=== PATIENT | female | born 1950 | race Caucasian/White ===

== ENCOUNTER 2024-11-27 01:55 | Day surgery (SDC) | payer MEDICARE, OTHER, SELFPAY ==
[2024-11-14 15:51] VITALS: BMI 21.7
--- NOTE | 2024-11-14 16:11 | PC.NURSE ---
Report to the Outpatient Waiting Room, entrance under the green pavilion located off [facility], at time __8:00AM___ on date __11/27/24___. Planned Procedure Time: __10:00AM____.? Time changes happen often and if your time is changed the preop area will call you the afternoon before. - You and your visitor will be asked to self-screen and do not enter if you have any COVID symptoms. Please call surgeon if you need to reschedule. - A mask is optional within the hospital at this time. Patients may have clear liquids (water, carbonated beverages, clear teas, apple juice) until 3 hours prior to surgery (7:00AM) with a maximum of 20 ounces. - No food from midnight until time of surgery and no smoking, or chewing tobacco (or any form of nicotine). No chewing gum, candy or mints. Take only the following medications with a SIP of water on the morning of surgery: ____NONE DO NOT STOP ANY OF YOUR OTHER PRESCRIPTION MEDICATIONS PRIOR TO SURGERY EXCEPT THE FOLLOWING Hold all vitamins and supplements for 3 days per anesthesiologist.-LAST DOSE 11/23/24 Please no make-up, nail botswanan, hairspray, perfume, deodorant, or body powder the day of surgery.? No jewelry (including any body piercings) or valuables the day of surgery, leave them at home.? Please take a shower or bath the night before, or the morning of, surgery with an antibacterial soap.? Wear comfortable, loose fitting clothing. - Jewelry must be removed prior to entering the operating room.? Rings and piercings that are not removed may be cut off. - The hospital will not accept responsibility for valuables.? - Please leave all valuables, including medications, at home the day of surgery. If you are going home after surgery, a licensed wedding transportation driver must drive you home.? - NO public transportation without another adult if you receive anesthesia. - We recommend that an adult stay with you for 24 hours following discharge. - We also recommend that you do not drive, make important decision, drink alcoholic beverages, or take any drugs that were not prescribed by your health care provider for at least 24 hours after your discharge time. Follow any additional instructions given to you from your surgeon. Telephone instructions given to ____PATIENT and asked if any additional questions and then verbalized understanding. Patient advised to call surgeon office or pre surgery nurse liaison [phone] if any additional questions.
[2024-11-27] VITALS (10 sets, daily range): BP systolic 102–146; BP diastolic 55–76; PULSE 63–77; RESP 10–16; TEMP 36.4–37.1; O2SAT 97–100; BMI 21.2
--- OUTSIDE RECORDS SUMMARY | 2024-11-27 02:17 | XMS_ITS | Continuity of Care Document ---
Author Name [facility] Organization [facility] Care Team Providers Care Mail Processing Machine Operator Name Role Phone DOD-VA Unavailable Unavailable Problems Combined list of problems from Department of Defense and Veterans Affairs facilities. It does not include entries that were removed or entered in error. Problem Status Onset Date Problem Type Date of Resolution Comments Source SINUSITIS Active Condition DoD BRONCHITIS Active Condition DoD OSTEOPOROSIS Active Condition DoD CLOSED FRACTURE OF ULNA PROXIMAL - OLECRANON PROCESS Active Condition Pt in need of orthopedic referral and imaging. Called [facility] orthopedics and gave them the pt's info. She will be called for an appointment. Stat consult entered in [facility]. Pt only has 4 more tabs of vicodin will give 30 more. 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 DoD visit for: screening exam lipoid disorders Inactive Condition Lipids look great. BMP looks good as well. DoD CONJUNCTIVITIS Inactive Condition DoD SPRAIN RIBS Inactive Condition DoD OSTEOPOROSIS POSTMENOPAUSAL Active Condition DoD Medications Combined list of outpatient medications from Department of Defense and Veterans Affairs facilities.Medications provided include 1) outpatient medications from the last 15 months, and 2) patient-reported medications. Medication Details Route Status Patient Instructions Prescription Expires Prescription Number Last Dispense Date Ordering Provider Order Date Order Qty Source azelastine 137 mcg/inh nasal spray [30mL] = 1 spray(s) , Nostril- Both, BID, # 30 mL, 0 total refill(s ), Hard Stop Nostri l-Both (into the nose) Complet ed 07/02/2024 5 2024 30.0 Ambulat ory Pharmac y azithromyci n 250 mg tablet (6EA) See Instruct ions, 0, # 6 EA, 0 total refill(s ), Hard Stop Complet ed 05/18/2024 5 2024 6.0 Ambulat ory Pharmac y cefdinir 300 mg capsule = 1 cap(s), Oral, BID, # 20 EA, 0 total refill(s ), Soft Stop Oral (given by mouth) Ordered 5 2024 20.0 Ambulat ory Pharmac y cetirizine 10 mg tablet See Instruct ions, Oral, # 90 EA, 3 total refill(s ), Hard Stop Oral (given by mouth) Ordered 05/12/2025 5 2024 90.0 Ambulat ory Pharmac y ciprofloxac in 0.3% eye drops [5mL] See Instruct ions, Instill 1 drop 3 times per day starting 2 days prior to surgery, continue for 1 week after surgery, # 5 mL, 1 total refill(s ), Soft Stop Ordered 5 2024 5.0 Ambulat ory Pharmac y docusate sodium 100 mg capsule See Instruct ions, # 10 EA, 0 total refill(s ), Hard Stop Complet ed 12/05/2023 3 2023 10.0 Ambulat ory Pharmac y estradiol 0.1 mg/g vaginal cream [42.5g] 1 g, Vaginal, # 42.5 g, 3 total refill(s ), Soft Stop Vagina l (in the vagina ) Ordered 5 2024 42.5 Ambulat ory Pharmac y fluorouraci l 5% cream [40g] See Instruct ions, # 40 g, 1 total refill(s ), Hard Stop Complet ed 05/30/2024 4 2024 40.0 Ambulat ory Pharmac y fluticasone 50 mcg/inh nasal spray [16g] See Instruct ions, # 16 g, 5 total refill(s ), Hard Stop Complet ed 03/22/2024 3 2023 16.0 Ambulat ory Pharmac y fluticasone 50 mcg/inh nasal spray [16g] = 1 spray(s) , Nostril- Both, Daily, # 16 g, 5 total refill(s ), Hard Stop Nostri l-Both (into the nose) Ordered 04/24/2025 5 2024 16.0 Ambulat ory Pharmac y HYDROcodone -acetaminop hen 5 mg-325 mg tablet = 1 tab(s), Oral, every 6 hr, # 20 EA, 0 total refill(s ), Hard Stop Oral (given by mouth) Complet ed 06/03/2023 3 2023 20.0 Ambulat ory Pharmac y ibandronate 150 mg tablet See dose instruct ions in comments , # 3 EA, 1 total refill(s ), Acute Complet ed 01/03/2023 3 2022 3.0 Ambulat ory Pharmac y ibandronate 150 mg tablet 150 mg, Oral, # 3 EA, 3 total refill(s ), Hard Stop Oral (given by mouth) Complet ed 03/11/2024 4 2023 3.0 Ambulat ory Pharmac y ketorolac 0.5% eye drops [5mL] See Instruct ions, Instill one drop into right eye three times a day, start 2 days prior to surgery and continue for 2 weeks followin g surgery. , # 5 mL, 1 total refill(s ), Soft Stop Ordered 5 2024 5.0 Ambulat ory Pharmac y methocarbam ol 500 mg tablet See Instruct ions, # 15 EA, 0 total refill(s ), Hard Stop Discont inued 01/02/2023 3 2022 15.0 Ambulat ory Pharmac y methocarbam ol 500 mg tablet See Instruct ions, # 30 EA, 1 total refill(s ), Hard Stop Complet ed 01/02/2024 3 2023 30.0 Ambulat ory Pharmac y methylPREDN ISolone 4 mg tablet Dose Pack [21EA] See Instruct ions, # 21 EA, 0 total refill(s ), Hard Stop Complet ed 05/18/2024 5 2024 21.0 Ambulat ory Pharmac y pantoprazol e EC 20 mg tablet 20 mg, Oral, Daily, # 30 EA, 0 total refill(s ), Hard Stop Oral (given by mouth) Complet ed 04/30/2024 4 2024 30.0 Ambulat ory Pharmac y pantoprazol e EC 20 mg tablet See Instruct ions, # 30 EA, 0 total refill(s ), Hard Stop Complet ed 03/22/2024 4 2023 30.0 Ambulat ory Pharmac y prednisoLON E acetate 1% eye drops (suspension ) [10mL] See Instruct ions, Instill 1 drop into eye three times a day. Starting after surgery and continue for 3 weeks., # 10 mL, 1 total refill(s ), Soft Stop Ordered 5 2024 10.0 Ambulat ory Pharmac y triamcinolo ne 0.1% cream [454g] See Instruct ions, 0, # 454 g, 0 total refill(s ), Hard Stop Complet ed 05/30/2024 4 2024 454.0 Ambulat ory Pharmac y Allergies, Adverse Reactions, Alerts Combined list of allergies from Department of Defense and Veterans Affairs facilities. It does not include entries that were removed or entered in error. Substance Category Reaction Severity Reaction type Status Date Reported Comments Source No Known Allergies Drug allergy (disorder) active 08/12/2007 [facility] [place] [place] Immunizations Combined list of available immunizations from the Department of Defense and Veterans Affairs facilities. Immunization Series Date Given Administered By Site Reaction Lot Number CVX Code Drug Cda Teacher Status Comments Source COVID Vaccine Moderna 2020 Erick Arm [id number] 207 complet ed COVID Vaccine Moderna 07/15/20 Given Ambulat ory Pharmac y COVID Vaccine Moderna 2020 [id number] complet ed COVID Vaccine Moderna 07/15/20 Given Ambulat ory Pharmac y SARS-COV-2 (COVID-19) vaccine, mRNA, spike protein, LNP, preservative free, 100 mcg or 50 mcg dose 1 2020 Unknown, Provider [id number] Moderna [employer] (MOD) complet ed SARS-COV- 2 (COVID-19 ) vaccine, mRNA, spike protein, LNP, preservat [place] free, 100 mcg or 50 mcg dose DoD COVID Vaccine Moderna 2020 Erick Arm [id number] 207 complet ed COVID Vaccine Moderna 06/17/20 Given Ambulat ory Pharmac y COVID Vaccine Moderna [id number] complet ed COVID Vaccine Moderna 06/17/20 Given Ambulat ory Pharmac y SARS-COV-2 (COVID-19) vaccine, mRNA, spike protein, LNP, preservative free, 100 mcg or 50 mcg dose 1 2020 Unknown, Provider [id number] Moderna [employer] (MOD) complet ed SARS-COV- 2 (COVID-19 ) vaccine, mRNA, spike protein, LNP, preservat [place] free, 100 mcg or 50 mcg dose DoD hepatitis B adult vaccine 2000 zzLef t Arm [id number] 43 [employer] complet ed hepatitis B adult vaccine 09/17/00 Given Ambulat ory Pharmac y hepatitis B adult vaccine 2000 [id number] 43 [employer] complet ed hepatitis B adult vaccine 09/17/00 Given Ambulat ory Pharmac y hepatitis B vaccine, adult dosage 2 2000 Unknown, Provider [id number] [employer] (MSD) complet ed hepatitis B vaccine, adult dosage DoD hepatitis B adult vaccine 2000 zzLef t Arm 1419 43 [employer] complet ed hepatitis B adult vaccine 06/25/00 Given Ambulat ory Pharmac y hepatitis B adult vaccine 2000 1419 43 [employer] complet ed hepatitis B adult vaccine 06/25/00 Given Ambulat ory Pharmac y hepatitis B vaccine, adult dosage 1 2000 Unknown, Provider [id number] 43 [employer] (MSD) complet ed hepatitis B vaccine, adult dosage DoD tetanus-dipht h toxoids (Td) adult/adol 1994 zzLef t Arm 09 complet ed tetanus-d iphth toxoids (Td) adult/ado l 04/20/94 Given Ambulat ory Pharmac y tetanus-dipht h toxoids (Td) adult/adol 1994 09 complet ed tetanus-d iphth toxoids (Td) adult/ado l 04/20/94 Given Ambulat ory Pharmac y tetanus and diphtheria toxoids, adsorbed, preservative free, for adult use (2 Lf of tetanus toxoid and 2 Lf of diphtheria toxoid) 1 1994 Unknown, Provider 09 () complet ed tetanus and diphtheri a toxoids, adsorbed, preservat [place] free, for adult use (2 Lf of tetanus toxoid and 2 Lf of diphtheri a toxoid) [facility] rubella virus vaccine 1978 zzLef t Arm 06 complet ed rubella virus vaccine 03/18/79 Given Ambulat ory Pharmac y rubella virus vaccine 1978 06 complet ed rubella virus vaccine 03/18/79 Given Ambulat ory Pharmac y rubella virus vaccine 1 1978 Unknown, Provider 06 () complet ed rubella virus vaccine DoD Encounters Combined list of: 1) Encounters from Department of Veterans Affairs facilities going backup to the last 18 months, not all VA inpatient encounters are included; 2) Encounters from the Department of Defense facilities going backup to 280 months. Location Location Details Encounter Type Encounter Number Reason For Visit Attending Provider ADM Date DC Date Status Disposition Source [address] [place] [address] [facility] [facility] [place] OUTPATIENT [id number] Rt Side Rib trauma/ pain MARGARITA PARADA 10/24 Released w/o Limitations [address] [place] [address] Tyler [facility] [place] [place] [facility] [place] [address] [place] [address] Tyler [facility] [facility] [place] OUTPATIENT [id number] red eyes BONI MICHEL 03/17 Released w/o Limitations [address] [place] [address] Tyler [facility] [place] [place] [facility] [place] [address] [place] [address] [facility] [facility] [place] OUTPATIENT [id number] f/u on bone density and bloodwo CARINA Knox 03/28 Released w/o Limitations [address] [place] [address] Tyler [facility] [facility] [place] [address] [place] [address] Tyler [facility]Opt ometry) OUTPATIENT [id number] having trouble seeing at night, was wonderi ng about catarac surgery JUAN FRANCISCO TAN 01/22 Released w/o Limitations [address] [place] [address] Tyler [facility] [place] [place]O ptometr y) [address] [place] [address] Tyler [facility] [facility] [place] OUTPATIENT [id number] right arm, needs NATY Jimenes 03/28 Released w/o Limitations [address] [place] [address] Tyler [facility] [facility] [place] [address] [place] [address] Tyler [facility] [facility] [place] TELE CONSULT [id number] Med Refill GLENNY HUITRON 05/[address] [place] [address] Tyler [facility] [facility] [place] [address] [place] [address] [facility] OUTPATIENT [id number] sinus congest ion,low grade temp [facility] 06/23 Released w/o Limitations [address] [place] [address] Tyler [facility]) [address] [place] [address] Tyler [facility]) OUTPATIENT [id number] sinus pain ISIAH GALEAS 06/28 Released w/o Limitations [address] [place] [address] Tyler [facility]) [address] [place] [address] Tyler [facility] OUTPATIENT [id number] C/L/S and PINK EYE - RT [id number] ISIAH GALEAS T 11/08 Released w/o Limitations [address] [place] [address] Tyler [facility]) Procedures Combined list of: 1) Procedures from Department of Veterans Affairs facilities going [facility], not all VA non-surgical procedures are included; 2) All procedures from the Department of Defense facilities. Procedure Procedure Type Code Date Perfomer Comments Sourc e No data available for this section Ambulato ry Pharmacy DETERMINATION OF REFRACTIVE STATE 006 [facility] INFUSION, NORMAL SALINE SOLUTION, 250 CC 005 DoD Determination Of Refractive State Determination Of Refractive State 23034 006 JUAN FRANCISCO TAN DoD Ophthalmological New Patient Start Comprehensive Care Ophthalmological New Patient Start Comprehensive Care [id number] 006 JUAN FRANCISCO TAN [facility] Social History Combined list of available smoking, tobacco, and other social history from Department of Defense and Veterans Affairs facilities. Social History Type Response Date Comment Sourc e This section is an empty social history section. DoD Assessment and Plan Combined list of future care activities from Department of Defense and Veterans Affairs facilities (e.g., assessment and plan notes, appointments, orders, and referrals). Additional future care activities may be listed in the Plan of Care section. Result Assessment and Plan Date Source Assessment and Plan No data available for this section 11/27/2024 Ambulatory Pharmacy Functional Status Combined list of recent functional and cognitive assessments recorded at Department of Defense and Veterans Affairs (CT).CT Functional [place] Measurement (FIM) Scale: 1 = Total Assistance (Subject = 0% +), 2 = Maximal Assistance (Subject = 25% +), 3 = Moderate Assistance (Subject = 50% +), 4 = Minimal Assistance (Subject = 75% +), 5 = Supervision, 6 = Modified [place] (Device), 7 = Complete [place] (Timely, Safely). Assessment Date/Time Source Assessment Type Assessment Skill Assessment Score Assessment Details No data available for this section
--- OUTSIDE RECORDS SUMMARY | 2024-11-27 02:18 | XMS_ITS | Clinical Summary ---
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 Name Role Phone Tequila Armenta MD Primary Care Provider Unavailable Social History Tobacco Use Types Packs/Day Years Used Date Smoking Tobacco: Never Assessed Comments Unknown Sex and Gender Information Value Date Recorded Sex Assigned at Not on file Legal Sex Female 7:42 PM CDT Gender Identity Not on file Sexual Orientation Not on file Plan of Treatment Health Maintenance Due Date Last Done Comments Hepatitis C 1966 DTaP, Tdap and Td Vaccines ( 1 - Tdap) 10/24/1967 Pneumococcal Vaccine: 50+ Ye ars (1 of 1 - PCV) 1998 Zoster Vaccines (1 of 2) 1998 Dexa Scan (General) 2013 RSV Immunization or 60+ Years (1 - 1-dose 75+ series) 10/24/2023 COVID-19 Vaccine (2023-2 5 season) 2023 Meningococcal B Vaccine Aged Out No l onger eligible based on patient's age to complete this topic Meningococcal Vaccine Aged Out No gideon amado eligible based on patient's age to complete this topic RSV Immunizations Under 20 Months Aged Out No longer eligible based on patient's age to complete this topic Care Teams Associate Professor Of Theatre Relationship Specialty Start Date End Date Tequila Armenta MD PCP - General 04/30/10
--- OUTSIDE RECORDS SUMMARY | 2024-11-27 02:18 | XMS_ITS | Clinical Summary ---
Author Organization [facility] Address [address] [place] [phone] Care Team Providers Care Real Estate Sales Associate Name Role Phone Ale Thrasher MD Primary Care Provider [phone] Allergies Active Allergy Reactions Criticality Noted Date Comments Morphine Sulfate Nausea only Low 12/28/2018 Nausea Pantoprazole Rash Medium 09/06/2023 Medications cholecalcifero l 25 mcg (1,000 unit) tablet Take 1 tablet (1,000 Units total) by mouth daily Active calcium carbonate-vazquez min D3 1,250 mg (500 mg elemental)-400 unit tablet Take 1 tablet by mouth 2 (two) times a day Active estradioL (ESTRACE) 0.01 % (0.1 mg/gram) vaginal creamIndicatio ns:Atrophic Vaginitis associated with Menopause,Atro phy of Vulva Insert 2 g intravaginally nightly for 2 weeks, and then insert 1 g intravaginally nightly every Sunday/Sunday/ rid. Loading dose. 42.5 g 5 Active estradioL (ESTRACE) 0.01 % (0.1 mg/gram) vaginal creamIndicatio ns:Atrophic Vaginitis associated with Menopause Apply 1 g intravaginally nightly every Sunday/Sunday/ rid. Maintenance dose 42.5 g 11 5 Active Active Problems Problem Noted Date Diagnosed Date Liver cyst 09/17/2024 Assessment & Plan (09/17/2024 2:46 PM CDT): Orders: Thyroid Function [place]; Future Vitamin D 25 hydroxy; Future Comprehensive metabolic panel; Future Lipid panel; Future CBC with auto differential; Future [place] grade 2 cystocele 08/29/2024 Assessment & Plan (08/29/2024 10:19 AM CDT): Refer to urogynecology Start vaginal Estrace cream as prescribed You can return to office if you need assistance with how to use it Follow up in 2 months Vaginal atrophy 08/29/2024 Assessment & Plan (08/29/2024 10:19 AM CDT): Start vaginal Estrace cream as prescribed You can return to office if you need assistance with how to use it Follow up in 2 months UTI symptoms 08/29/2024 Assessment & Plan (08/29/2024 10:21 AM CDT): Labs ordered Gross hematuria 08/13/2024 Hematuria 08/13/2024 Assessment & Plan (09/17/2024 2:46 PM CDT): Orders: Urine culture Urine, clean voided; Future Urinalysis reflex to microscopic; Future Thyroid Function [place]; Future Vitamin D 25 hydroxy; Future Comprehensive metabolic panel; Future Lipid panel; Future CBC with auto differential; Future Assessment & Plan (08/29/2024 10:19 AM CDT): Refer to urogynecology Abdominal swelling, periumbilical region 025 Acute non-recurrent maxillary sinusitis 05/12/19 25 Assessment & Plan (05/18/2024 11:35 PM EP[facility]EMIOLOGY INTER[facility]): New Order angelica fulton medrol, colletteteazul Advanced care planning/counseling discussion 02/2024 Assessment & Plan (03/12/2024 11:08 AM EP[facility]EMIOLOGY INTERNS[facility]): Documents printed for patient to discuss with her family Visit [email or web address] for more information Once documents are completed, bring them to your next appointment to have them scanned into your chart. Medicare annual wellness visit, subsequent 03/12 Assessment & Plan (03/12/2024 11:09 AM [facility]Y [facility]): Recommend drinking at least 64 oz of water daily Recommend at least 26g fiber daily Recommend at least 150 min of exercise weekly as tolerated Recommend taking daily multivitamin Continue eating a healthy well-balanced diet. Limit processed foods like white starches, fast food, sweets and soda. Increase your vegetable intake and limit red meat. Wear your seatbelt at all times. No texting and driving. Continue to manage your stress in a healthy manner. Follow-up 1 year for annual physical. Colon cancer screening 10/31/2023 Mixed stress and urge urinary incontinence 10/30 Assessment & Plan (03/12/2024 10:53 AM EP[facility]EMIOLOGY [facility]NSH[facility]): Refer to physical therapy Patient declines initiating medication Consider having a pelvic exam to assess for organ prolapse or pelvic relaxation Assessment & Plan (11/12/2023 5:27 AM CDT): Chronic Uncontrolled Refer to PT Localized edema 09/06/2023 Gastroesophageal reflux disease without esophagi tis 03/30/2023 Assessment & Plan (03/30/2023 8:15 AM [facility]OLOGY [facility]): New Start protonix Encounter for Medicare annual wellness exam 01/31 Assessment & Plan (03/22/2023 5:03 AM [facility]EMIOLOGY [facility]NS[facility]): Patient here for annual Medicare wellness visit and for review of complete medical problem list. All the elements of the plan were completed as outlined by CMS. A copy of the prevention plan was given to the patient. I reviewed Medicare Wellness Questionnaire (other physicians involved in care, depression screen, advanced directives), cognitive/memory, and functional assessment. I reviewed and updated the complete problem list, medication list, family history, and immunization records with the patient. I provided preventive counseling and early detection interventions to the patient through health maintenance update and summary of today's office visit. 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, bi lateral 02/15/2023 Assessment & Plan (03/22/2023 5:03 AM [facility]EMIOLOGY INTERNS[facility]): New Refer to physical thearpy Wear compression stockings Abnormal EKG 01/15/2023 Precordial pain 01/15/2023 Fall 12/05/2022 S/P kyphoplasty 12/05/2022 Closed fracture of third lum bar vertebra, unspecified fracture morphology, initial encounter 11/27/2022 Assessment & Plan (12/29/2022 4:10 AM CDT): New S/p kyphoplasty Cont pain meds PRN Add flexeril PRN Kyphosis 01/08/2022 Assessment & Plan (01/08/2022 6:57 AM CDT): New Evaluate on xrays first Age-related osteoporosis wit hout current pathological fracture 01/04/2022 Assessment & Plan (03/12/2024 11:07 AM [facility]IOLOGY [facility]): Chronic and stable Continue Boniva monthly injections Consider Evenity injections. Brochures provided for patient education Refer to physical therapy Continue taking calcium and vitamin-D supplements Recommend resistance and core strengthening exercises Consider water aerobics Assessment & Plan (11/12/2023 5:26 AM CDT): Chronic Stable Cont boniva, calcium Assessment & Plan (03/30/2023 8:15 AM [facility]Y [facility]): Chronic Cont boniva and calcium Assessment & Plan (03/22/2023 5:03 AM [facility]EMIOLOGY [facility]): Chronic Stable Cont calcium Assessment & Plan (01/08/2022 6:56 AM CDT): New Start OTC calcium BID Start boniva Acute midline thoracic back pain 01/04/2022 Assessment & Plan (01/08/2022 6:56 AM CDT): New Order xray Neck pain 01/04/2022 Assessment & Plan (01/08/2022 6:56 AM CDT): New Order xray Ankle edema, bilateral 10/12/2021 Assessment & Plan (10/19/2021 4:29 AM CDT): Chronic Use compression stockings Vitamin D deficiency 10/12/2021 Assessment & Plan (09/17/2024 2:46 PM CDT): Orders: Thyroid Function [place]; Future Vitamin D 25 hydroxy; Future Comprehensive metabolic panel; Future Lipid panel; Future CBC with auto differential; Future Assessment & Plan (03/12/2024 10:53 AM [facility]IOLOGY [facility]NS[facility]): Continue vitamin-D supplementation Assessment & Plan (11/12/2023 5:27 AM CDT): Chronic Stable Cont supplement Assessment & Plan (03/30/2023 8:15 AM EP[facility]EMIOLOGY INTERNS[facility]): Chronic Cont vitamin d supplmeent Assessment & Plan (03/22/2023 5:02 AM EP[facility]EMIOLOGY INTER[facility]): Chronic Is Stable Cont vitamin d supplement Assessment & Plan (12/29/2022 4:09 AM CDT): Chronic Stable Cont vitamin d supplement Assessment & Plan (01/08/2022 6:55 AM CDT): Stable Cont OTC supplement Assessment & Plan (10/19/2021 4:28 AM CDT): Stable Cont OTC supplement Well adult exam 10/12/2021 Assessment & Plan (09/17/2024 2:46 PM CDT): Orders: Thyroid Function [place]; Future Vitamin D 25 hydroxy; Future Comprehensive metabolic panel; Future Lipid panel; Future CBC with auto differential; Future Screening for colon cancer 10/12/2021 Encounter for screening mamm ogram for malignant neoplasm of breast 10/12/2021 Postmenopause 10/12/2021 Hearing loss of right ear due to cerumen impacti on 10/12/2021 Assessment & Plan (10/19/2021 4:28 AM CDT): New Refer to ENT Acute bacterial conjunctivitis of right eye 12/02 Assessment & Plan (12/28/2018 10:05 AM CDT): Overall Condition: New Acute Problem Treatment: New Medication: tobramycin Follow up PRN Encounters Date Type Department Care Team Description 11/14/2024 8:00 AM CDT - 11/14/2024 11:59 PM CDT Hospital Encounter [address] [address] Radha Stout, GHAZAL Age-related osteoporosis without current pathological fracture (Primary Dx) Discharge Disposition: Discharge to home or self care 10/30/2024 3:26 PM CDT - 10/30/2024 11:59 PM CDT Hospital Encounter [facility] MRI [address] [place] [phone] Liver cyst Discharge Disposition: Discharge to home or self care 10/17/2024 8:00 AM CDT - 10/17/2024 11:59 PM CDT Hospital Encounter [address] [address] Age-related osteoporosis without current pathological fracture (Primary Dx) Discharge Disposition: Discharge to home or self care 10/15/2024 Telephone [facility] [address] [facility] [address] [place] [phone] Ale Thrasher MD 09/25/2024 11:14 AM CDT - 09/25/2024 11:59 PM CDT Hospital Encounter [facility] Breast Imaging [address] [place] [phone] Screening mammogram, encounter for; History of breast cancer; History of left mastectomy Discharge Disposition: Discharge to home or self care 09/24/2024 8:10 AM CDT Lab [facility] Lab [address] [place] [phone] Gross hematuria 09/23/2024 3:15 PM CDT Lab [facility] Lab [address] [place] [phone] Gross hematuria 09/19/2024 8:00 AM CDT - 09/19/2024 11:59 PM CDT Hospital Encounter [facility] Infusion Center [address] [place] [phone] Age-related osteoporosis without current pathological fracture (Primary Dx) Discharge Disposition: Discharge to home or self care 09/17/2024 2:30 PM CDT Office Visit [address] [place] [phone] Ale Thrasher MD Gross hematuria (Primary Dx); Liver cyst; Vitamin D deficiency; Well adult exam 09/11/[address] [place] [phone] Ale Thrasher MD Medical Question/Miscellaneo us 09/07/2024 Results Follow-Up [address] [phone] Faiza Peng DNP Urinalysis reflex to microscopic and culture Urine, clean voided, Urinalysis, microscopic only 09/02/2024 Results Follow-Up [address] [phone] Jocelyn, [place] Abdomen Pelvis W Contrast 08/29/2024 10:40 AM CDT Lab [facility] Lab [address] [place] [phone] UTI symptoms 08/29/2024 10:00 AM CDT Office Visit [address] [phone] Faiza Peng DNP [place] grade 2 cystocele (Primary Dx); Vaginal atrophy; UTI symptoms; Hematuria, unspecified type; Frequent UTI 08/28/2024 Nurse Triage [address] [phone] Ale Thrasher MD from Last 3 Months Immunizations Immunization Administration Dates Next Due Hep B Vaccine 09/17/2000,06/25/2000 Influenza, Quadrivalent, Hig h Dose, Preservative Free, Intrr 05/09/2022,05/24/2020 Influenza, Trivalent, High D ose, Split, Preservative Free, Intramuscular 03/12/2024 Influenza, Unspecified 12/31/2022 Moderna SARS-CoV-2 Monovalent Vaccination (12+ Y RS) 06/09/2020,05/12/2020 Pneumococcal Conjugate Pcv20 12/14/2022 Rubella 03/18/1979 Td, adsorbed 04/20/1994 Surgical History Surgery Date Site/Laterality Comments BREAST RECONSTRUCTION 04/02/2000 - 04/01/2001 Left MASTECTOMY 04/02/2000 - 04/01/2001 Left EYE SURGERY cataracts SKIN CANCER EXCISION LUMBAR SPINE SURGERY 11/29/2022 L3 BACK SURGERY CATARACT EXTRACTION June 25, 2024 Medical History Medical History Date Comments Breast cancer (HCC) 2000 Left Breast Cataracts, bilateral Thyroid disease Sinusitis HL (hearing loss) Osteoporosis Family History Medical History Relation Name Comments Scoliosis Daughter 1 Anemia Daughter 2 Mitral valve prolapse Daughter 2 No Known Problems Daughter 3 Heart disease Father Angina Mother Dementia Mother No Known Problems Son 1 No Known Problems Son 2 Breast cancer Neg Hx Relation Name Status Comments Daughter 1 Alive Daughter 2 Alive Daughter 3 Alive Father Mother Son 1 Alive Son 2 Alive Social History Tobacco Use Types Packs/Day Years Used Date Smoking Tobacco: Never Smokeless Tobacco: Never Tobacco Cessation:Counseling Given: Not Answered Alcohol Use Standard Drinks/Week Comments Not Currently 0 (1 standard drink = 0.6 oz pur e alcohol) Social Connection and Isolation Panel Answer Date Recorded In a typical week, how many times do you talk on the phone with family, friends, or neighbors? More than three times a week 11/28/2022 How often do you get togethe r with friends or relatives? More than three times a week 11/28/2022 How often do you attend chur or baptism services? Never 11/28/2022 Do you belong to any clubs o r organizations such as orthodoxy groups, unions, fraternal or athletic groups, or school groups? No 11/28/2022 How often do you attend meet ings of the clubs or organizations you belong to? Never 11/28/2022 Are you , , di vorced, , never , or living with a partner? 11/28/2022 AUDIT-C Answer Date Recorded Q1: How often do you have a drink containing alcohol? Never 10/29/2023 Q2: How many drinks containi ng alcohol do you have on a typical day when you are drinking? Patient does not drink Q3: How often do you have si x or more drinks on one occasion? Never 10/29/2023 Overall Financial Resource Strain (CARDIA) Answe r Date Recorded How hard is it for you to pa y for the very basics like food, housing, medical care, and heating? Not hard at all 11/28/2022 PHQ-2 Answer Date Recorded PHQ-2 Total Score (If total score is 3 or more points, staff should administer the PHQ-9) 0 05/12/2024 Hunger Vital Sign Answer Date Recorded Within the past 12 months, y ou worried that your food would run out before you got the money to buy more. Never true 11/29/19 23 Within the past 12 months, t he food you bought just didn't last and you didn't have money to get more. Never true 11/28/2022 PRAPARE - Transportation Answer Date Re corded In the past 12 months, has l ack of transportation kept you from medical appointments or from getting medications? No 11/01 In the past 12 months, has l ack of transportation kept you from meetings, work, or from getting things needed for daily living? No 11/28/2022 Housing Stability Vital Sign Answer Vicente e Recorded In the last 12 months, was t here a time when you were not able to pay the mortgage or rent on time? No 11/28/2022 In the last 12 months, how many places have you lived? 1 11/28/2022 In the last 12 months, was t here a time when you did not have a steady place to sleep or slept in a group home (including now)? No 11/28/2022 Personal Safety Answer Date Recorded Have you ever been in or are you currently in a harmful physical or emotional relationship or is someone making you feel afraid or unsafe? Denies 03/17/2023 Comments No Sex and Gender Information Value Date Recorded Sex Assigned at Not on file Legal Sex Female 2:35 AM [facility] Gender Identity Not on file Sexual Orientation Not on file Obstetrics History Para Term AB IAB SAB Ectopic Multiple Livin g Live Births 5 5 5 Date Outcome GA Total Labor Labor/2nd/3rd Weight Sex Type Anes PTL Jacqueline A1 A5 Name Clin Term Term Term Term Term Last Filed Vital Signs Vital Sign Reading Time Taken Comments Blood Pressure 122/72 11/14/2024 8:10 AM CDT Pulse 68 11/14/2024 8:10 AM CDT Temperature 36.7 C (98.1 F) 11/14/2024 8:10 AM CDT Respiratory Rate 18 11/14/2024 8:10 AM CDT Oxygen Saturation 100% 11/14/2024 8:10 AM CDT Inhaled Oxygen Concentration - - Weight 54 kg (119 lb) 10/30/2024 3:56 PM CDT Height 157.5 cm (5' 2.01) 10/30/2024 3:56 PM CD T Body Mass Index 21.76 10/30/2024 3:56 PM CDT Plan of Treatment Health Maintenance Due Date Last Done Comments Colon Cancer Screening-DNA Stool 1950 Hepatitis C Screening 1950 DTaP/Tdap/Td Vaccine (1 - Tdap) 04/21/1994 5 Zoster Vaccine (1 of 2) 1998 Covid-19 Vaccine (3 - 2023-2 5 season) 2023 06/09/2020, 05/12/2020 Influenza Vaccine (#1) 2024 , 12/31/2022, 05/09/2022, Additional history exists Fall Risk Assessment 03/12/2025 03/12/2024, 02/15/2023, 12/14/2022, Additional history exists Well Visit 65+ 03/12/2025 03/12/2024, 02/15/2023 Depression Screening 05/12/2025 05/12/2024, 03/12/2024, 02/15/2023, Additional history exists Osteoporosis Screening-Bone Density Scan 02/21/2026 02/22/2024, 10/18/2021 Hepatitis B Screening Completed 09/17/2000, 001 Pneumococcal vaccine 65+ Completed 12/14/2022 Breast Cancer Screening-Mammogram Discontinued 09/25/2024, 03/21/2023, 10/13/2021 Medical Devices Implanted Type Area Transitional Care Liaison Device Identifier Shelf Expiration Date Model / Serial / Lot [employer] Vertaplex Hv Autoplex Without Needle Delivery System Kit Bone [id number] - [id number] Implanted:Qty: 1 on 11/29/2022 by Home Alcaraz Ud, MD at [facility] N/A: Spine Lumbar [employer] 08/30/2024 [id number] / / [employer] Kit Prep 5.0mm And Expansion Kit [id number] - [id number] Implanted:Qty: 1 on 11/29/2022 by Home Alcaraz Ud, MD at [facility] N/A: Spine Lumbar [employer] 09/29/[id number] / / Procedures Procedure Name Priority Date/Time Associated Diagnosis Comments MRI ABDOMEN LIVER W WO CONTRAST Schedule Routine, Read Routine (OP Routine) 10/30/2024 5:22 PM CDT Liver cyst SCREENING MAMMOGRAM RIGHT W BONG UNILATERAL ONLY Schedule Routine, Read Routine (OP Routine) 09/25/2024 11:25 AM CDT Screening mammogram, encounter for History of breast cancer History of left mastectomy URINALYSIS, MICROSCOPIC ONLY Routine 09/24/2024 8:23 AM CDT Gross hematuria URINALYSIS AND REFLEX TO MICROSCOPIC Routine 09/24/2024 8:23 AM CDT Gross hematuria URINE CULTURE Routine 09/24/2024 8:23 AM CDT Gross hematuria URINALYSIS, MICROSCOPIC ONLY Routine 08/29/2024 10:48 AM CDT UTI symptoms URINALYSIS AND REFLEX TO MICROSCOPIC AND CULTURE Routine 08/29/2024 10:48 AM CDT UTI symptoms DEXA AXIAL SKELETON BONE DENSITY 1 OR MORE SITES Schedule Routine, Read Routine (OP Routine) 02/22/2024 3:10 PM [facility] Age-related osteoporosis without current pathological fracture from Last 3 Months or Most Recently Relevant to Health Maintenance Results * MRI Abdomen Liver W WO Contrast (10/30/2024 5:22 PM CDT) Anatomical Region Laterality Modality Body N/A Magnetic Resonan ce 11/11/2024 2:29 PM CDT Narrative 11/11/2024 2:37 PM CDT EXAM DESCRIPTION: MRI ABDOMEN LIVER W WO CONTRAST REASON FOR STUDY: Liver cyst Gross hematuria, liver cyst, hx breast cancer. TECHNIQUE: MRI of the abdomen performed without and with intravenous contrast according to the liver protocol. All images stored on PACS. CONTRAST TYPE/DOSE: 10mL of GADOTERATE MEGLUMINE 0.5 MMOL/ML INTRAVENOUS SOLUTION (SO) injected via intravenous COMPARISON: CT abdomen and pelvis 08/19/2024 FINDINGS: LIVER: Hepatomegaly. Normal contour. No evidence of hepatic steatosis. Numerous simple cysts throughout the liver, the largest in the right hepatic lobe measuring 1.5 cm. GALLBLADDER: No stones, wall thickening or pericholecystic fluid BILE DUCTS: No intrahepatic or extrahepatic ductal dilatation. Previously described left hepatic lobe biliary ductal dilatation is not appreciated on this exam. SPLEEN: Normal size. No focal lesions. PANCREAS: No masses. No significant calcifications. No adjacent inflammation or peripancreatic fluid collections. Pancreatic duct not dilated. ADRENALS: Normal. KIDNEYS/URINARY TRACT: Bilateral renal cortical simple cysts measuring up to 1.3 cm on the left. No suspicious renal lesion. No hydronephrosis or hydroureter. Symmetric enhancement. GI: No visualized abnormality. PERITONEUM: No ascites. RETROPERITONEUM: No mass or adenopathy. VASCULATURE: No abdominal aortic aneurysm. MUSCULOSKELETAL: No acute findings. OTHER: No other abnormality. IMPRESSION: Hepatomegaly. Numerous simple cysts throughout the liver measuring up to 1.5 cm. No suspicious liver lesion. THIS IS AN ELECTRONICALLY VERIFIED FINAL REPORT 11/11/2024 2:37 PM - Electronically signed by Ángel Hodge M.D. KR T: Report ID: [id number] Reading Location: [id number] Procedure Note Ángel Hodge MD - 11/11/2024 EXAM DESCRIPTION: MRI ABDOMEN LIVER W WO CONTRAST REASON FOR STUDY: Liver cyst Gross hematuria, liver cyst, hx breast cancer. TECHNIQUE: MRI of the abdomen performed without and with intravenous contrast according to the liver protocol. All images stored on PACS. CONTRAST TYPE/DOSE: 10mL of GADOTERATE MEGLUMINE 0.5 MMOL/ML INTRAVENOUS SOLUTION (SO) injected via intravenous COMPARISON: CT abdomen and pelvis 08/19/2024 FINDINGS: LIVER: Hepatomegaly. Normal contour. No evidence of hepatic steatosis. Numerous simple cysts throughout the liver, the largest in the right hepatic lobe measuring 1.5 cm. GALLBLADDER: No stones, wall thickening or pericholecystic fluid BILE DUCTS: No intrahepatic or extrahepatic ductal dilatation.Previously described left hepatic lobe biliary ductal dilatation is not appreciatedon this exam. SPLEEN: Normal size. No focal lesions. PANCREAS: No masses. No significant calcifications. No adjacentinflammation or peripancreatic fluid collections. Pancreatic duct not dilated. ADRENALS: Normal. KIDNEYS/URINARY TRACT: Bilateral renal cortical simple cysts measuringup to 1.3 cm on the left. No suspicious renal lesion. No hydronephrosis or hydroureter. Symmetric enhancement. GI: No visualized abnormality. PERITONEUM: No ascites. RETROPERITONEUM: No mass or adenopathy. VASCULATURE: No abdominal aortic aneurysm. MUSCULOSKELETAL: No acute findings. OTHER: No other abnormality. IMPRESSION: Hepatomegaly. Numerous simple cysts throughout the liver measuring up to 1.5 cm. No suspicious liver lesion. THIS IS AN ELECTRONICALLY VERIFIED FINAL REPORT 11/11/2024 2:37 PM - Electronically signed by Ángel Hodge M.D. KR T: Report ID: [id number] Reading Location: [id number] us Ale Thrasher MD IMG MRI PROCEDURES Final Result * Screening Mammogram Right W Bong Unilateral Only (09/25/2024 11:25 AM CDT) Anatomical Region Laterality Modality Breast Right Mammography Impressions 09/25/2024 11:48 AM CDT No evidence of malignancy. OVERALL BI-RADS FINAL ASSESSMENT: 1 - Negative RECOMMENDATION: Recommend right breast annual screening mammography. Narrative 09/25/2024 11:48 AM CDT EXAMINATION: Screening Mammogram Right W Bong Unilateral Only: 09/25/2024 COMPARISON: Relevent prior studies available at the time of interpretation were reviewed, including the most recent mammogram on: 03/21/2023 and 10/13/2021. TECHNIQUE: Mammography was performed with 2D and digital breast tomosynthesis (DBT) images. CAD was utilized. BREAST PARENCHYMAL COMPOSITION: The breasts are heterogeneously dense, which may obscure small masses. FINDINGS: The patient is status post left mastectomy. There is no suspicious mass, calcification, or architectural distortion in the right breast. There has been no suspicious interval change. us Ale Thrasher MD IM MAMMO PROCEDURES Karine l Result * (ABNORMAL) Urinalysis reflex to microscopic (09/24/2024 8:23 AM CDT) Color, ur Straw Yellow Clarity, ur Clear Clear ANTIONE Specific gravity, ur 1.009 1.003 - 1.030 [facility], urine 7.0 [facility] Comment: Interpretive Data U rine pH is affected by diet, medications, systemic acid-base disturbances, and renal tubular function. pH may affect urinary stone formation. For example, urine pH below 6.0 may help reduce the tendency for calcium phosphate stones and pH greater than 6.0 may reduce the tendency for uric acid stone formation. Source: [facility] Current Interpretive Data was last revised on 2017 Protein, ur ql Negative Negative [facility] Glucose, ur ql Negative Negative [facility] Ketones, ur Negative Negative [facility] Bilirubin, ur Negative Negative [facility] Blood, ur 3+(A) Negative [facility] Urobilinogen, ur <2.0 <2.0 mg/dL [facility] [facility] Nitrite, ur Negative Negative [facility] Leukocyte esterase, ur Negative Negative [facility] UA reflex comment Reflex to microscopic UA will be performed. [facility] Urine 09/24/2024 8:23 AM CDT 09/24/2024 8:37 AM CDT Narrative ANTION[facility] - 09/24/2024 8:46 AM CDT Urine Collection Method->Clean Catch Ale Thrasher MD LAB URINE ORDERABLES Karine l Result Performing Organization Address [facility]/ZIP Co de Phone Number [address] [address] * (ABNORMAL) Urinalysis, microscopic only (09/24/2024 8:23 AM CDT) WBC, ur 0-5 0 - 5 /HPF RBC, ur 21-50(A) 0 - 2 /HPF [facility] Urine 09/24/2024 8:23 AM CDT 09/24/2024 8:37 AM CDT Ale Thrasher MD LAB URINE ORDERABLES Karine l Result Performing Organization Address [facility] Co de Phone Number [address] [address] * Urine culture Urine, clean voided (09/24/2024 8:23 AM CDT) Report Final Report: Less than 100,000 colonies/mL (clinically insignificant growth based on current clinical standards) Comment:Testing performed by : [facility], [address] [place]., [address] Organism (CLINICALLY INSIGNIFICANT GROWTH [facility] Urine, clean voided 09/24/2024 8:23 AM CDT 09/24/2024 11:53 AM CDT [facility]ative [facility] - 09/25/2024 1:12 PM CDT Testing performed by [facility] Microbiology Laboratory ([phone]) Ale Thrasher MD LAB MICROBIOLOGY - GENERA L ORDERABLES Final Result Performing Organization Address City/[facility] Co de Phone Number [address] [address] * (ABNORMAL) Urinalysis reflex to microscopic and culture Urine, clean voided (08/29/2024 10:48 AM CDT) Color, ur Yellow Yellow Clarity, ur Clear Clear [facility] Specific gravity, ur 1.009 1.003 - 1.030 [facility] pH, urine 6.0 [facility] Comment: Interpretive Data U rine pH is affected by diet, medications, systemic acid-base disturbances, and renal tubular function. pH may affect urinary stone formation. For example, urine pH below 6.0 may help reduce the tendency for calcium phosphate stones and pH greater than 6.0 may reduce the tendency for uric acid stone formation. Source: [facility] Current Interpretive Data was last revised on 2017 Protein, ur ql Negative Negative [facility] Glucose, ur ql Negative Negative [facility] Ketones, ur Negative Negative [facility] Bilirubin, ur Negative Negative [facility] Blood, ur 2+(A) Negative [facility] Urobilinogen, ur <2.0 <2.0 mg/dL [facility] Nitrite, ur Negative Negative [facility] Leukocyte esterase, ur Negative Negative [facility] UA reflex comment Reflex to microscopic UA will be performed. [facility] Urine, clean voided 08/29/2024 10:48 AM CDT 08/29/2024 11:09 AM CDT Narrative [facility] - 08/29/2024 11:16 AM CDT Urine Collection Method->Clean Catch Faiza Peng [facility] LAB MICROBIOLOGY - GENERAL ORDERABLES Final Result [facility] [address] [facility] Department [place] [address] * (ABNORMAL) Urinalysis, microscopic only (08/29/2024 10:48 AM CDT) WBC, ur 6-10(A) 0 - 5 /HPF RBC, ur 11-20(A) 0 - 2 /HPF [facility] Epithelial cells, squamous, ur 1-5 0 - 5 /HPF [facility] Culture Reflex Comment Reflex conditions for urine culture (WBC >10) not met. [facility] Urine, clean voided 08/29/2024 10:48 AM CDT 08/29/2024 11:09 AM CDT us Faiza Peng DNP LAB URINE ORDERABLE S Final Result [facility] [address] [facility] [place] [address] * Dexa Axial Skeleton Bone Density 1 or 2 Site (02/22/2024 3:10 PM [facility]) Anatomical Region Laterality Modality Body N/A Mammography 02/23/2024 5:52 AM [facility] Narrative 02/23/2024 5:53 AM [facility]EMIOLOGY INTERNS[facility] EXAM DESCRIPTION: DEXA AXIAL SKELETON BONE DENSITY 1 OR MORE SITES REASON FOR STUDY: 73 y/o year old F with given history of: Post menopausal status. History of prior fracture and parent with hip fracture. Patient has taken/is taking vitamin-D and hormone replacement therapy. Transitional Care Liaison/Model: Haul Zing. A (S/N [id number]) CLINICAL INFORMATION: Current height: 60.6 inches Maximum height: 66 inches Weight: 120 pounds Risk factors: Parent with hip fracture and personal history of fracture. COMPARISON: 10/18/2021 FINDINGS: AP LUMBAR SPINE L1-L2,L4: Total BMD is 0.702 g/cm2 T-score is -3.0 Dissimilar scan types or analysis methods precludes assessment for calculating a significant change. LEFT HIP: Total BMD is 0.670 g/cm2 T-score is -2.2 This is a 6.5% decrease in comparison to prior exam which is statistically significant. Femoral neck BMD is 0.587 g/cm2 T-score is -2.4 FRAX: FRAX not reported due to T-scores of hip, femoral neck and/or spine being at or below -2.5 (Osteoporosis). IMPRESSION: Osteoporosis. REFERENCE: Bone mineral density: T-Score: Normal (T-score above or = -1.0) Low bone mass (T-score between -1.0 and -2.5) replaces the previously used term osteopenia Osteoporosis (T-score = or below -2.5) Z-Score: Within the expected range for age (Z-score above -2.0) Below the expected range for age (Z-score is -2.0 or below) Please see below follow up recommendations. Medical evaluation for secondary causes of low bone mineral density may be appropriate. FRAX is a World Health Organization validated fracture risk assessment tool that calculates a person's 10 year probability of a major osteoporosis related fracture and hip fracture. According to the National Osteoporosis Foundation guidelines, postmenopausal women and men age 50 or older with low bone mass and a 10 year probability of a major osteoporosis related fracture = or greater than 20% or a 10 year probability of a hip fracture = or greater than 3% should be considered for pharmacological treatment for the prevention of osteoporosis. For further information, including treatment recommendations, please refer to the 2019 ISCD Official Positions (http://www.iscd.org) and the NOF's Clinician's Guide to Prevention and Treatment of Osteoporosis (http://www.nof.org/professionals/clinical-guidelines) THIS IS AN ELECTRONICALLY VERIFIED FINAL REPORT 02/23/2024 5:53 AM - Electronically signed by Emily Ortiz M.D. TW: TW Report ID: [id number] Reading Location: [id number] Procedure Note Emily Ortiz MD - 02/23/2024 EXAM DESCRIPTION: DEXA AXIAL SKELETON BONE DENSITY 1 OR MORE SITES REASON FOR STUDY: 73 y/o year old F with given history of: Post menopausal status. History of prior fracture and parent with hipfracture. Patient has taken/is taking vitamin-D and hormone replacement therapy. Transitional Care Liaison/Model: Haul Zing. A (S/N [id number]) CLINICAL INFORMATION: Current height: 60.6 inches Maximum height: 66 inches Weight: 120 pounds Risk factors: Parent with hip fracture and personal history of fracture. COMPARISON: 10/18/2021 FINDINGS: AP LUMBAR SPINE L1-L2,L4: Total BMD is 0.702 g/cm2 T-score is -3.0 Dissimilar scan types or analysis methods precludes assessment for calculating a significant change. LEFT HIP: Total BMD is 0.670 g/cm2 T-score is -2.2 This is a 6.5% decrease in comparison to prior exam which is statistically significant. Femoral neck BMD is 0.587 g/cm2 T-score is -2.4 FRAX: FRAX not reported due to T-scores of hip, femoral neck and/or spine beingat or below -2.5 (Osteoporosis). IMPRESSION: Osteoporosis. REFERENCE: Bone mineral density: T-Score: Normal (T-score above or = -1.0) Low bone mass (T-score between -1.0 and -2.5) replaces thepreviously used term osteopenia Osteoporosis (T-score = or below -2.5) Z-Score: Within the expected range for age (Z-score above -2.0) Below the expected range for age (Z-score is -2.0 or below) Please see below follow up recommendations. Medical evaluation forsecondary causes of low bone mineral density may be appropriate. FRAX is a World Health Organization validated fracture risk assessmenttool that calculates a person's 10 year probability of a major osteoporosisrelated fracture and hip fracture. According to the National OsteoporosisFoundation guidelines, postmenopausal women and men age 50 or older with low bonemass and a 10 year probability of a major osteoporosis related fracture = or greater than 20% or a 10 year probability of a hip fracture = or greaterthan 3% should be considered for pharmacological treatment for the preventionof osteoporosis. For further information, including treatment recommendations, please referto the 2019 ISCD Official Positions (http://www.iscd.org) and the NOF's Clinician's Guide to Prevention and Treatment of Osteoporosis (http://www.nof.org/professionals/clinical-guidelines) THIS IS AN ELECTRONICALLY VERIFIED FINAL REPORT 02/23/2024 5:53 AM - Electronically signed by Emily Ortiz M.D. TW: RICCARDO Report ID: [id number] Reading Location: [place] [address] Ale Thrasher MD IM DXA PROCEDURES Final Result from Last 3 Months or Most Recently Relevant to Health Maintenance Insurance FOR LIFE [facility] MEDICARE ADVANT[facility] Address: [facility] [address] [place] [address] [facility] ADVANTAGE [facility] MEDICARE Address: [facility] [address] [place] [address] FOR LIFE [employer] [facility] FOR LIFE [facility] MEDICARE ADVANTAGE Advance Directives For more information, please contact: [phone] * Full Code (Latest Code Status on File) Date Activated Date Inactivated Comments 11/27/2022 4:34 PM 12/07/2022 8:59 PM Care Teams Real Estate Sales Associate Relationship Specialty Start Date End Date Ale Thrasher MD PCP - General Family Medicine 12/28/18
--- OUTSIDE RECORDS SUMMARY | 2024-11-27 02:18 | XMS_ITS | Clinical Summary ---
Author Organization [facility] Address [address] [place] [address] Care Team Providers Care Bench Shear Operator Name Role Phone Unavailable Primary Care Provider Unavailabl e Source Comments [facility],non-owned Affiliates and Associated Physician Practices is amultiple site organization consisting of ambulatory clinics and hospital sitesin [place], [place], [place] and [place]. This disclosure is being madepursuant to the Care Everywhere program and may not contain all information available regarding this patient. Last updated 17.[facility] Social History Tobacco Use Types Packs/Day Years Used Date Smoking Tobacco: Never Assessed Comments Unknown Sex and Gender Information Value Date Recorded Sex Assigned at Not on file Legal Sex Female 3:56 PM CDT Gender Identity Not on file Sexual Orientation Not on file Plan of Treatment Health Maintenance Due Date Last Done Comments BONE DENSITY TESTING 1950 HEPATITIS C SCREENING 10/19/1966 DTAP/TDAP/TD VACCINES (1 - Tdap) 10/24/1967 PNEUMOCOCCAL VACCINE 50+ (1 of 1 - PCV) 1998 ZOSTER VACCINE (1 of 2) 1998 Respiratory Syncytial Virus (RSV) Vaccine Pt: or over 60 yrs (1 - 1-dose 75+ series) 10/24/2023 COVID-19 VACCINE ( - 2023-2 5 season) 2023 DEPRESSION SCREENING 04/02/2024 INFLUENZA VACCINE (#1) 2024 HEPATITIS B VACCINE Aged Out No longe r eligible based on patient's age to complete this topic HIB VACCINE Aged Out No longer eligi ble based on patient's age to complete this topic HPV VACCINE Aged Out No longer eligi ble based on patient's age to complete this topic MENINGOCOCCAL (Group B) VACC INE SHARED DECISION-MAKING Aged Out No longer eligibl e based on patient's age to complete this topic MENINGOCOCCAL GROUPS A/C/Y/W VACCINE Aged Out No longer eligible b ased on patient's age to complete this topic Insurance
--- OUTSIDE RECORDS SUMMARY | 2024-11-27 02:18 | XMS_ITS | Encounter Summary ---
Author Organization [facility] Address [address] [place] [address] Care Team Providers Care Funding Specialist Name Role Phone Unavailable Primary Care Provider Unavailabl e Encounter Details Date Type Department Care Team (Late st Contact Info) Description 12/29/2020 Lab Requisition [facility] [address] [place] [id number] Myron Marie MD [address] [address] Social History Tobacco Use Types Packs/Day Years Used Date Smoking Tobacco: Never Assessed Comments Unknown Sex and Gender Information Value Date Recorded Sex Assigned at Not on file Legal Sex Female 3:56 PM CDT Gender Identity Not on file Sexual Orientation Not on file documented as of this encounter Plan of Treatment Not on file documented as of this encounter Procedures Procedure Name Priority Date/Time Associated Diagnosis Comments DERMATOPATHOLOGY Routine 12/28/2020 12:0 0 AM CDT documented in this encounter Results * DERMATOPATHOLOGY (12/28/2020 12:00 AM CDT) Case Report Dermatopathology Report Case: [id number] Authorizing Provider: Myron Marie MD Collected: 12/28/2020 12:00 AM Ordering Location: [facility] Received: 12/29/2020 06:02 AM Pathologist: Abbie Jaquez MD Specimen: Skin, right pentecostal 4:28 PM CDT DERMATOPATHOLOGY LABORATORY Final Diagnosis Specimen A. SKIN, right pentecostal: SQUAMOUS CELL CARCINOMA IN SITU, PRESENT AT THE BASE OF THE SPECIMEN (D04.39) (see microscopic description and comment) 4:28 PM CDT DERMATOPATHOLOGY LABORATORY at 1628 CDT Clinical History R/O SCCA in situ. 4:28 PM CDT DERMATOPATHOLOGY LABORATORY Gross Description Specimen A: Received is one formalin filled container labeled with the patient's name and designated right pentecostal. The specimen consists of a shave biopsy measuring [id number]. Jar 0. 4:28 PM CDT DERMATOPATHOLOGY LABORATORY Microscopic Description Specimen A. SKIN, right pentecostal: The epidermis shows parakeratosis, full thickness disorderly maturation of keratinocytes, mitoses at different levels, and dyskeratotic cells. The lesion extends to the base of the biopsy. COMMENT: An invasive squamous cell carcinoma cannot be ruled out. 4:28 PM CDT DERMATOPATHOLOGY LABORATORY Disclaimer An external and internal positive and negative controls are appropriate for the histochemical, immunohistochemical and immunofluorescence stain(s) in this case (if any), except where stated explicitly. The performance characteristics of the stain(s) cited in this report were developed and its performance characteristic determined by the Dermatopathology Laboratory at [facility], directed by Dr. Solomon Jaquez. These tests need not be, and therefore are not, approved by the [place] Food and Drug Administration. The tests are used for clinical purposes. Billing Codes Specimen Charges Stain Charges 76871 1 4:28 PM CDT DERMATOPATHOLOGY LABORATORY Embedded Images 4:28 PM CDT DERMATOPATHOLOGY LABORATORY Pathology/Cytolog y TISSUE SPECIMEN FROM SKIN / Unknown 12/28/2020 12/29/2020 6:02 AM CDT us Myron Marie MD LAB - PATHOLOGY/CYTOLOGY ORDER CHRISTINE Final Result DERMATOPATHOLOGY LABORATORY [facility] - Department of Dermatology [address], [address] [phone] documented in this encounter Visit Diagnoses Not on filedocumented in this encounter
--- OUTSIDE RECORDS SUMMARY | 2024-11-27 02:19 | XMS_ITS | Clinical Summary ---
Author Organization [facility] Care Team Providers Care Golf Manager Name Role Phone Unavailable Primary Care Provider Unavailabl e Social History Tobacco Use Types Packs/Day Years Used Date Smoking Tobacco: Never Assessed Comments Unknown Sex and Gender Information Value Date Recorded Sex Assigned at Not on file Legal Sex Female 2:35 PM CDT Gender Identity Not on file Sexual Orientation Not on file Plan of Treatment Health Maintenance Due Date Last Done Comments Hepatitis C Virus (HCV) Screening 1950 TdaP Immunization 1950 Pneumococcal Immunization (5 0+ years) (1 of 1 - PCV) 1998 Zoster Immunization (1 of 2) 1998 Respiratory Syncytial Virus (RSV) Immunization (Adult) (1 - 1-dose 75+ series) 10/24/2023 SARS-COV-2 Immunization ( - 2023- season) 2023 Influenza Immunization (#1) 2024 05/24/2020 Hepatitis B Immunization Aged Out No longer eligible based on patient's age to complete this topic Human Papillomavirus (HPV) Immunization Aged Out No longer eligible b ased on patient's age to complete this topic Meningococcal Immunization (ACWY) Aged Out No longer eligible based on patient's age to complete this topic Rotavirus Immunization Aged Out No lo nger eligible based on patient's age to complete this topic
--- NOTE | 2024-11-27 06:04 | WPDHPUPDATE1 ---
History and Physical Update Update Date/Time: 11/27/24 06:04 History and Physical has been reviewed, including an updated exam of the patient. There are NO changes in the patient's condition. Risks, benefits, and alternatives have been discussed and questions answered. Patient agrees to proceed with procedure.
--- NOTE | 2024-11-27 08:50 | WPDANESEPPF ---
Anes - Initial Pre Proc Eval Procedure: Operation Date: 11/27/24 10:00 Proposed Procedures p Trans Urethral Resection Bladder Tumor with Gemcitabine Installation - Yoav Rice MD Date/Time: 11/27/24 08:50 Surgeon: Yoav Rice MD Pre Op Diagnosis: Gross Hematuria Patient Data Age: 74 Gender: F Height: 1.57 m Weight: 54 kg Allergies Allergy/AdvReac Type Severity Reaction Status Date / Time morphine AdvReac NAUSEA Verified 11/14/24 15:46 Home Medications ?Medication ?Instructions ?Recorded ?Confirmed ?Type azelastine 137 mcg (0.1 %) nasal 1 spray intranasal Q12H PRN nasal 11/14/24 11/14/24 History spray congestion calcium carb-ergocalciferol (vit 1 tablet PO BID 11/14/24 11/14/24 History D2) 600 mg calcium-200 unit tablet cholecalciferol (vitamin D3) 25 1,000 unit PO DAILY 11/14/24 11/14/24 History mcg (1,000 unit) capsule Patient hx anesthesia problems: none Family hx anesthesia problems: none Results Review: All pre-operative results and documents have been reviewed as part of the pre-operative evaluation. [facility] Past Medical History Medical History (Updated 11/27/24 @ 07:53 by James Benites DO) GERD (gastroesophageal reflux disease) Hyperthyroidism History of breast cancer Surgical History Surgical History (Updated 11/27/24 @ 07:53 by James Benites DO) History of mastectomy Social History Social History Smoking status: Never smoker Alcohol intake: never Living arrangements: with family Additional living arrangements comments: HUSB Spiritual care concerns: No Anes - Eval Final PreProcedure Day of Procedure 11/27/24 08:50 Patient weight: normal Heart: regular rate and rhythm Lungs: clear to auscultation and normal air movement Airway: Mallampati scale class II Neurological: alert and oriented Last oral intake: >/= 8 hours ASA classification: II Emergent: no Anesthetic plan: proceed Anesthesia type and monitoring: general LMA and standard monitoring Results Review: All pre-operative results and documents have been reviewed as part of the pre-operative evaluation. Informed Consent: The patient's anesthetic plan and its attendant risks and benefits were discussed with the patient/family/POA. Questions were solicited and answers provided to the satisfaction of the patient/family/POA.
[2024-11-27] MEDS: ceFAZolin 2 GM in SODIUM CHLORIDE 0.9% IV 50 ML 100 ML IVPB (09:39)
[2024-11-27] MEDS: LIDOCAINE 2% GEL UROJET 10 ML PKG MUCOUS MEM (09:51)
--- NOTE | 2024-11-27 10:04 | S_PTH ---
PATIENT: Bre Salguero LOC: [facility] U#:[id number] AGE/SX: 74/F ROOM: RE11/27/[address]: Yoav Rice MD : 1950 BED: DIS: 11/27/2024 SPEC #: [id number] RECD: 11/27/24 11:36 STATUS: VALENTINO REQ #: [id number] FAY: 11/27/24 10:[address]: Yoav Rice DEPT: [facility] Surgical RECD BY: Silvia Luis ENTERED: 11/27/24 11:36 SP TYPE: Surgical OTHR DR: Ale ThrasherMD Tissues: A - Bladder Tumor Procedures: Hematoxylin and Eosin Stain Gross and Microscopic Level 4
[2024-11-27] MEDS: LACTATED RINGERS 1,000 ML 30 ML IV CONT (10:16)
--- NOTE | 2024-11-27 10:16 | W.PM.PROC2 ---
Procedure Note - Detailed Date of Procedure 11/27/24 Pre-op Diagnosis Papillary bladder tumors Post-op Diagnosis Same Procedure Performed TURBT (medium, 4 cm) Surgeon Yoav Rice MD Anesthesia General Description of Procedure Patient is brought to the operative suite she was prepped draped in routine sterile fashion while dorsal lithotomy position. 2% xylocaine jelly was introduced intraurethrally and mask anesthesia was administered per the anesthesia department. Cystoscopy was undertaken with a 24 F resectoscope. The bladder was very carefully inspected. She is found to have 5 small papillary lesions scattered throughout the anterior, right lateral and right posterior lateral bladder wall. Each of these was resected in its entirety using a loop electrode. I made an attempt to include detrusor muscle for pathological evaluation of invasion. Base and periphery were cauterized with the rollerball electrode. This is all done with care to avoid any kind of injury to the ureteral orifices. Resectoscope was removed and an 18 F Kinney catheter was placed to drainage. The patient tolerated the procedure well was taken recovery good condition. Drains Yes Packing No Pathology None sent Complications No immediate complications
--- NOTE | 2024-11-27 10:18 | W.PM.PROC2 ---
Procedure Note - Detailed Date of Procedure 11/27/24 Pre-op Diagnosis Papillary bladder tumors Post-op Diagnosis Same Procedure Performed Gemcitabine installation Surgeon Yoav Rice MD Anesthesia None Description of Procedure With the patient in the supine position, a 16F Kinney catheter is placed using sterile technique. Using a protective facemask, gown and double layer of gloves Gemcitabine 2gm in 100cc saline is administered through the catheter/into the bladder. The catheter is then plugged. Patient was instructed to lie supine x20min, then to roll both the left and right x20 min. each. Total dwell time will be 60 min., after which the bladder will be drained and catheter removed.
[2024-11-27] MEDS: SODIUM CHLORIDE 0.9% IV 23.7 ML, GEMCITABINE HCL 1,000 MG BLADDER ×2 (10:27→10:28)
[2024-11-27] MEDS: SODIUM CHLORIDE 0.9% IV 50 ML BAG 150 ML IRRIGATION (11:39)
== END 2024-11-27 12:58 | disposition home or self-care (01) ==
PROVIDERS: PCP Family Medicine; Visit Provider Urology
PROC: 0TBB8ZZ Excision of Bladder, Via Natural or Artificial Opening Endoscopic (ICD-10-PCS; CPT 52235; principal; 2024-11-27 10:00)
DX: C67.2 Malignant neoplasm of lateral wall of bladder (principal); N32.81 Overactive bladder; E03.9 Hypothyroidism, unspecified; K21.9 Gastro-esophageal reflux disease without esophagitis; Z98.890 Other specified postprocedural states; Z85.3 Personal history of malignant neoplasm of breast; Z82.49 Family history of ischemic heart disease and other diseases of the circulatory system
CPT/HCPCS: 52235; 51720; 88305; J0690; J1100; J2405; J2704; J3010; J7120; J9201